=== PATIENT | female | born 1950 | race Caucasian/White ===

== ENCOUNTER 2017-10-11 20:13 | Emergency (ER) | payer MEDICARE, BC, OTHER ==
[2017-10-11 20:19] VITALS: BP 186/89; PULSE 81; RESP 20; TEMP 98.1
--- NOTE | 2017-10-11 20:40 | ED ---
General Adult HPI - General Chief complaint: GI Bleed Stated complaint: Rectal Bleeding Time Seen by Provider: 10/11/17 20:24 Source: patient, RN notes reviewed Mode of arrival: ambulatory Limitations: no limitations - History of Present Illness Initial comments: 67-year-old female presented emergency department with complaints of hemorrhoid issues. Patient has known chronic hemorrhoids states that she normally is Proctofoam with states that she is currently traveling in from [place] and states that she forgot her Proctofoam. She states that she had on-and-off bleeding. Patient states that she started having some bleeding today and states that she would like a prescription for her Proctofoam. Patient states bleeding was not severe. Patient states he has no chest pain or shortness breath, lightheadedness. Patient's bleeding has stopped. Patient has minimal rectal pain. - Related Data Previous Rx's Medication Instructions Recorded Hydrocortisone/Pramoxine 1 applic RECTAL BID #1 bottle 10/11/17 [Proctofoam-Hc 1%-1% Foam] Allergies Allergy/AdvReac Type Severity Reaction Status Date / Time aspartame Allergy Rapid Verified 10/11/17 20:21 Heart Rate atorvastatin [From Lipitor] Allergy Abdominal Verified 10/11/17 20:21 Pain bee venom protein (honey bee) Allergy Swelling Verified 10/11/17 20:21 epinephrine Allergy Unknown Verified 10/11/17 20:21 Iodinated Contrast- Oral and Allergy Rash/Hives Verified 10/11/17 20:21 IV Dye procaine [From Novocain] Allergy Rapid Verified 10/11/17 20:21 Heart Rate Sulfa (Sulfonamide Allergy Rash/Hives Verified 10/11/17 20:21 Antibiotics) Review of Systems ROS Statement: Those systems with pertinent positive or pertinent negative responses have been documented in the HPI. ROS Other: All systems not noted in ROS Statement are negative. Past Medical History Past Medical History: Cancer, Hyperlipidemia, Thyroid Disorder Additional Past Medical History / Comment(s): colon and pancreatic ca History of Any Multi-Drug Resistant Organisms: None Reported Past Surgical History: Joint Replacement Additional Past Surgical History / Comment(s): mauri hip replacement Past Psychological History: No Psychological Hx Reported Smoking Status: Never smoker Past Alcohol Use History: Occasional Past Drug Use History: None Reported General Exam Limitations: no limitations General appearance: alert, in no apparent distress Neck exam: Present: normal inspection. Absent: tenderness, meningismus, lymphadenopathy Respiratory exam: Present: normal lung sounds bilaterally. Absent: respiratory distress, wheezes, rales, rhonchi, stridor Cardiovascular Exam: Present: regular rate, normal rhythm, normal heart sounds. Absent: systolic murmur, diastolic murmur, rubs, gallop, clicks GI/Abdominal exam: Present: soft, normal bowel sounds. Absent: distended, tenderness, guarding, rebound, rigid Rectal exam: Present: hemorrhoids (Old blood dried at noted hemorrhoid) Skin exam: Present: warm, dry, intact, normal color. Absent: rash Course Vital Signs 10/11/17 20:15 Temperature 98.1 F Pulse Rate 81 Respiratory 20 Rate Blood Pressure 186/89 Medical Decision Making - Medical Decision Making 67-year-old female presented for prescription for Proctofoam. Patient has issues with hemorrhoids. Patient had minimal bleeding today and came to emergency room because she is from out of town. Patient's vitals are stable she has no abdominal pain there is noted hemorrhoid that is open. Patient we discharged on Proctofoam return parameters were discussed. Disposition Clinical Impression: Hemorrhoids Disposition: HOME SELF-CARE Condition: Stable Instructions: Hemorrhoids (ED) Additional Instructions: Please return to the Emergency Department if symptoms worsen or any other concerns. Prescriptions: Hydrocortisone/Pramoxine [Proctofoam-Hc 1%-1% Foam] 1 applic RECTAL BID #1 bottle Is patient prescribed a controlled substance at d/c from ED?: No Referrals: Nonstaff,Physician [Primary Care Provider] - 1-2 days Time of Disposition: 20:40
== END 2017-10-11 20:55 | disposition home or self-care (01) ==
LOC: EC 20:13
DX: K64.9 Unspecified hemorrhoids (principal); Z76.0 Encounter for issue of repeat prescription; Z88.2 Allergy status to sulfonamides; Z88.4 Allergy status to anesthetic agent; Z88.8 Allergy status to other drugs, medicaments and biological substances; Z91.030 Bee allergy status
CPT/HCPCS: 99282